=== PATIENT | female | born 1965 | race Caucasian/White ===

== ENCOUNTER 2018-09-02 21:03 | Emergency (ER) | payer SELFPAY ==
[2018-09-02] MEDS ORDERED: NORMAL SALINE 1000 ML 1,000 ML IV ONE (21:11)
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
[2018-09-02 21:17] LABS: ABSOLUTE EOSINOPHILS # (AUTO) 0.1 10^3/uL (0.0-0.6); ABSOLUTE LYMPHOCYTES (AUTO) 3.3 10^3/uL (0.5-4.7); ABSOLUTE MONOCYTES (AUTO) 0.4 10^3/uL (0.1-1.4); ABSOLUTE NEUT (AUTO) 3.9 10^3/uL (1.7-8.2); BASOPHILS % (AUTO) 0.6 % (0-2); EOSINOPHILS % (AUTO) 1.6 % (0-6); HEMATOCRIT 43.2 % (36.0-47.0); HEMOGLOBIN 14.6 g/dL (12.0-15.5); LYMPHOCYTES % (AUTO) 42.4 % (13-45); MEAN CORPUSCULAR HEMOGLOBIN 33.6 pg (27.0-33.4); MEAN CORPUSCULAR HGB CONC 33.7 g/dL (32.0-36.0); MEAN CORPUSCULAR VOLUME 100 fl (80-97); MONOCYTES % (AUTO) 4.8 % (3-13); PLATELET COUNT 338 10^3/uL (150-450); RED BLOOD COUNT 4.33 10^6/uL (3.72-5.28); RED CELL DISTRIBUTION WIDTH 13.8 % (11.5-14.0); SEGMENTED NEUTROPHILS % (AUTO) 50.6 % (42-78); TOTAL CELLS COUNTED % (AUTO) 100 %; WHITE BLOOD COUNT 7.7 10^3/uL (4.0-10.5)
[2018-09-02 21:34] LABS: ALANINE AMINOTRANSFERASE 28 U/L (9-52); ALBUMIN 4.3 g/dL (3.5-5.0); ALCOHOL 248 mg/dL (NONE DETECTED); ALKALINE PHOSPHATASE 64 U/L (38-126); ANION GAP 18 (5-19); ASPARTATE AMINO TRANSFERASE 46 U/L (14-36); BILIRUBIN,DIRECT 0.3 mg/dL (0.0-0.4); BILIRUBIN,TOTAL 0.3 mg/dL (0.2-1.3); BLOOD UREA NITROGEN 8 mg/dL (7-20); CALCIUM 9.2 mg/dL (8.4-10.2); CARBON DIOXIDE 16 mmol/L (22-30); CHLORIDE 116 mmol/L (98-107); GLUCOSE 101 mg/dL (75-110); POTASSIUM 3.8 mmol/L (3.6-5.0); SALICYLATE 1.5 mg/dL (2.0-20.0); SODIUM 149.7 mmol/L (137-145); TOTAL PROTEIN 6.7 g/dL (6.3-8.2)
[2018-09-02 21:36] LABS: ACETAMINOPHEN < 10 ug/mL (10-30)
[2018-09-02 22:29] LABS: FREE T3 3.34 pg/mL (2.77-5.27); FREE T4 (FREE THYROXINE) 1.37 ng/dL (0.78-2.19)
[2018-09-02 22:43] LABS: THYROID STIMULATING HORMONE 2.7 uIU/mL (0.47-4.68)
[2018-09-02 23:06] LABS: APPEARANCE,URINE CLEAR; BILIRUBIN,URINE NEGATIVE (NEGATIVE); COLOR,URINE COLORLESS; GLUCOSE, URINE NEGATIVE (NEGATIVE); KETONES,URINE NEGATIVE (NEGATIVE); LEUKOCYTE ESTERASE,URINE NEGATIVE (NEGATIVE); NITRITE,URINE NEGATIVE (NEGATIVE); PROTEIN,URINE NEGATIVE (NEGATIVE); URINE SPECIFIC GRAVITY 1.002; UROBILINOGEN,URINE NEGATIVE mg/dL (<2.0)
[2018-09-02 23:19] LABS: URINE AMPHETAMINES SCREEN NEGATIVE; URINE BARBITURATES SCREEN NEGATIVE; URINE BENZODIAZEPINES SCREEN NEGATIVE; URINE COCAINE SCREEN NEGATIVE; URINE MARIJUANA (THC) SCREEN UNCONFIRMED POSITIVE; URINE METHADONE SCREEN NEGATIVE; URINE PHENCYCLIDINE SCREEN NEGATIVE
--- NOTE | 2018-09-02 23:43 | EKG REPORT ---
SEVERITY:- NORMAL ECG - SINUS RHYTHM : Confirmed by: Marley Cruz MD 02-Sep-2018 23:42:48
[2018-09-03] MEDS ORDERED: HALOPERIDOL LACTATE INJ 5 MG/1 ML VIAL IM ONE (03:38)
--- NOTE | 2018-09-03 10:27 | ER Document Report ---
Doctor's Note Notes: 09/03/18 10:24 Rounds: Chart reviewed and patient interviewed. Patient is a very calm female in no distress. She was reportedly extremely agitated last night when she arrived. Required sedation pharmacologically for her aggression. Her labs showed that she had been drinking heavily with an alcohol level of 248. She had received ketamine at the scene by EMS. Other lab studies show positive marijuana in her drug test but no other findings there. History of hypertension, hypothyroid, and anxiety. All vital signs are essentially normal. Patient appears to be medically stable for transfer or discharge. Pete Walters MD
[2018-09-03] MEDS: VENLAFAXINE HCL 37.5 MG CAP.SR.24H PO SCH (14:26)
[2018-09-03] MEDS: BUSPIRONE HCL 10 MG TABLET PO SCH (18:07)
--- NOTE | 2018-09-04 09:56 | ER Document Report ---
Doctor's Note Notes: 09/04/18 09:54 As the rounding physician this AM, I assessed the patient's labs, vitals, and records. No concerning findings this morning. Patient denies any acute complaints. Patient is cleared for disposition by behavioral health team 09/04/18 14:44 Patient will be discharged on Effexor 37.5 mg daily and BuSpar 7.5 mg twice daily
[2018-09-04] MEDS: VENLAFAXINE HCL 37.5 MG CAP.SR.24H PO SCH (09:57)
[2018-09-04] MEDS: BUSPIRONE HCL 10 MG TABLET PO SCH (10:05)
[2018-09-04 14:43] VITALS: BP 138/99
--- NOTE | 2018-09-05 12:11 | PSYCHOLOGICAL NOTE ---
Psych Note - Psych Note Date seen by psych provider: 09/03/18 Psych Note: Diagnosis: Psychosis per family friend Unspecified Depressive Disorder Alcohol Use Disorder, Moderate to Severe Medication recommendations made by the psychiatric medical provider, Dr. Yvonne MD., includes: Discontinue Lexapro 20MG daily Add Effexor 37.5MG daily for depression/focus/energy/to curb cravings Continue Buspar 7.5MG twice a day for anxiety/calming effect/depression/sleep Impression/Plan: Recommendation for 24 Hour IVC Petition. Patient does not recall things that took place. She admitted she had been drinking Sanket and Coke's yesterday, drinking is regular but not every day, admitted to using cannabis regularly, she still has 3-4 days of medication left with scripts are ready at [facility] (Metropolol, Levothyroxine Sodium, Lexapro, Buspar) and a provider at Urgent care in [place] is prescribing medications. She presented somewhat lethargic with poor memory of events. Collateral from daughter noted patent has been staying with a family friend in [place] from [place] after patient's children's father . Daughter noted patient called her 2.5 months ago hearing voices which told her that family hated her, everywhere she went there was a [place] broadcast telling her things, she had encouraged patient to get treatment or talk with someone and the only medical issue daughter was aware of was thyroid. Want to allow for continued sobering up and medication adjustment. Consulted with Dr. Blas regarding the management and care of patient. ED Physician in agreement with recommendations.
--- NOTE | 2018-09-05 13:30 | PSYCHOLOGICAL NOTE ---
Psych Note - Psych Note Date seen by psych provider: 09/04/18 Psych Note: Diagnosis: Psychosis per family friend Unspecified Depressive Disorder Alcohol Use Disorder, Moderate to Severe Impression/Plan: Patient is cleared from acute psychiatric services. Milo mmendation to rescind 24 Hour IVC Petition. She denied current SI/HI and no observed psychosis. She had time to rest, sober up from alcohol intoxication and talk with both daughter and family friend she has been staying with. Medications were adjusted. She has improved alertness and orientation. Obtained collateral from family friend Love and included her in plan of care. Patient has follow up appointment scheduled at [facility] on 09/06/18 at 1200 (they noted she had two previous no shows). Patient provided with outpatient MH resource sheet which documented appointment date and time, as well as highlighted IFS MCM. Consulted with Dr. Blas regarding the management and care of patient. ED Physician in agreement with recommendations.
== END 2018-09-04 15:00 | disposition home or self-care (01) ==
LOC: ER 21:03
DX: R45.1 Restlessness and agitation (principal); R44.0 Auditory hallucinations; F10.129 Alcohol abuse with intoxication, unspecified; Y90.8 Blood alcohol level of 240 mg/100 ml or more; E03.9 Hypothyroidism, unspecified; F41.9 Anxiety disorder, unspecified; I10 Essential (primary) hypertension
CPT/HCPCS: 93005; 99285; 36415; 84439; 80307 ×4; 84443; 85025; 80053; 81001; 84481; 93010; J3490 ×2; J1630; J7030